=== PATIENT | female | born 1965 | race African-American/Black ===

== ENCOUNTER 2016-09-17 20:55 | Emergency (ER) | payer MEDICAID ==
[~2016-09-17] VITALS: Ht 167.6 cm; Wt 177.0 kg
[~2016-09-17 20:55] MED LIST: CYCL5TAB PO
[2016-09-17 23:04] VITALS: BP 165/110
== END 2016-09-17 23:06 | disposition home or self-care (01) ==
LOC: ER 22:15
DX: I83.018 Varicose veins of right lower extremity with ulcer other part of lower leg (principal); E66.9 Obesity, unspecified; Z98.890 Other specified postprocedural states; Z91.040 Latex allergy status; Z68.44 Body mass index [BMI] 60.0-69.9, adult
CPT/HCPCS: 99282

== ENCOUNTER 2022-07-11 21:49 | Emergency (ER) | payer MEDICAID, MEDICARE ==
[~2022-07-11] VITALS: Ht 167.6 cm; Wt 170.0 kg
[~2022-07-11 21:49] MED LIST changes: +APIX5TAB PO; +CHOL400D7 PO; -CYCL5TAB PO; +PROP20TA7 PO; +TRAM50TA3 PO
[2022-07-11 22:56] LABS: EOSINOPHILS % 1.8 % (0.0-5.0); HEMATOCRIT. 40.7 % (36.0-48.0); HEMOGLOBIN. 13.7 g/dL (12.0-16.0); LYMPHOCYTES % 38.5 % (20.0-50.0); MEAN CORPUSCULAR HEMOGLOBIN 29.4 pg (28.0-32.0); MEAN CORPUSCULAR VOLUME 87.5 fL (81.0-99.0); MEAN PLATELET VOLUME 9.5 fl (7.4-10.4); MONOCYTES % 7.3 % (2.0-8.0); NEUTROPHILS % 51.4 % (40.0-76.0); PLATELET 162 x1000/uL (130-400); RED BLOOD CELL COUNT 4.65 mill/uL (4.2-5.4); RED CELL DISTRIBUTION WIDTH 14.4 % (11.6-14.6)
[2022-07-11 22:59] LABS: CHLORIDE 110 mEq/L (98-107)
[2022-07-12] MEDS ORDERED: ONDANSETRON HCL 4MG/2ML INJ IV NR (02:58)
[2022-07-12] MEDS ORDERED: FAMOTIDINE 20MG/2ML VIAL IV NR (02:58)
[2022-07-12] MEDS ORDERED: MORPHINE SULFATE 4 MG/ML CPJ (NOT FOR IM USE) IV NR (02:58)
[2022-07-12] MEDS ORDERED: SODIUM CHLORIDE 0.9% 1,000 ML IV ONE (03:00)
[2022-07-12 05:16] VITALS: BP 136/77
[2022-07-12] MEDS ORDERED: HYDR-4001 MT (05:26)
[2022-07-12] MEDS ORDERED: METH-653 MT (05:26)
== END 2022-07-12 07:15 | disposition home or self-care (01) ==
LOC: ER 21:49
DX: I82.401 Acute embolism and thrombosis of unspecified deep veins of right lower extremity (principal); Z98.890 Other specified postprocedural states
CPT/HCPCS: 36415; 71045; 74176; 80053; 83880; 84484; 85025; 85379; 93005; 93970; 96361; 96374; 96375; 99285; J2270; J2405; J3490

== ENCOUNTER 2024-02-04 19:29 | Emergency (ER) | payer MEDICARE, MEDICAID ==
[~2024-02-04] VITALS: Ht 170.2 cm; Wt 170.0 kg
[~2024-02-04 19:29] MED LIST changes: +HYDR-4001 MT; +METH-653 MT
[2024-02-04 19:39] VITALS: O2SAT 100
[2024-02-04] MEDS: ACETAMINOPHEN 500MG TABLET PO ONE (21:15)
[2024-02-04 22:44] LABS: BASOPHILS % 0.7 % (0.0-2.0); EOSINOPHILS % 2.3 % (0.0-5.0); HEMATOCRIT. 40.2 % (36.0-48.0); HEMOGLOBIN. 12.7 g/dL (12.0-16.0); LYMPHOCYTES % 35.7 % (20.0-50.0); MEAN CORPUSCULAR HEMOGLOBIN 28.3 pg (28.0-32.0); MEAN CORPUSCULAR HGB CONC 31.6 g/dL (31.0-37.0); MEAN CORPUSCULAR VOLUME 89.6 fL (81.0-99.0); MEAN PLATELET VOLUME 9.2 fl (7.4-10.4); MONOCYTES % 8.2 % (2.0-8.0); NEUTROPHILS % 53.1 % (40.0-76.0); PLATELET 188 x1000/uL (130-400); RED BLOOD CELL COUNT 4.48 mill/uL (4.2-5.4); RED CELL DISTRIBUTION WIDTH 13.8 % (11.6-14.6); WHITE BLOOD COUNT 6.7 x1000/uL (4.5-11.0)
[2024-02-04 22:53] LABS: CHLORIDE 110 mEq/L (98-107); POTASSIUM 4.3 mEq/L (3.5-5.1); SODIUM 144 mEq/L (136-145)
[2024-02-04 22:54] LABS: CARBON DIOXIDE 26 mEq/L (21-32)
[2024-02-04 22:55] LABS: CLARITY URINE CLEAR (CLEAR); COLOR URINE YELLOW (YELLOW); GLUCOSE URINE NEGATIVE (NEGATIVE); KETONES URINE NEGATIVE (NEGATIVE); LEUKOCYTE ESTERASE URINE NEGATIVE (NEGATIVE); NITRITE URINE NEGATIVE (NEGATIVE); OCCULT BLOOD URINE NEGATIVE (NEGATIVE); PH URINE 5.5 (4.5-8.0); PROTEIN URINE NEGATIVE (NEGATIVE); SPECIFIC GRAVITY URINE 1.013 (1.005-1.030)
[2024-02-04 22:55] LABS: CALCIUM 9.6 mg/dL (8.7-10.4)
[2024-02-04 22:59] LABS: GLUCOSE 93 mg/dL (70-105); UREA NITROGEN BLOOD 14 mg/dL (9-23)
[2024-02-04 23:00] LABS: TROPONIN I HIGH SENSITIVITY 7 ng/L (3.0-34)
[2024-02-05 00:23] VITALS: BP 167/87; PULSE 59; RESP 18; TEMP 36.72516; O2SAT 100
== END 2024-02-05 00:26 | disposition home or self-care (01) ==
LOC: ER 19:29
DX: R60.0 Localized edema (principal); R20.2 Paresthesia of skin; I10 Essential (primary) hypertension; Z79.899 Other long term (current) drug therapy
CPT/HCPCS: 36415; 71045; 80048; 81003; 83880; 84484; 85025; 93005; 93971; 99285